=== PATIENT | female | born 1925 | race Caucasian/White ===

== ENCOUNTER 2017-03-09 17:12 | Inpatient (IN) | payer MEDICARE, BC ==
[2017-03-09] MEDS ORDERED: NITROGLYCERIN 0.4 MG TAB SL PRN (17:19)
[2017-03-09] MEDS ORDERED: SODIUM CHLORIDE 0.9% FLUSH 10 ML SOL IV PRN (17:19)
[2017-03-09] MEDS ORDERED: ASPIRIN 81 MG CHEWABLE CTB PO STA (17:19)
[2017-03-09] MEDS ORDERED: ASPIRIN 81 MG CHEWABLE CTB ONE (17:29)
[2017-03-09] MEDS ORDERED: NITROGLYCERIN 0.4 MG TAB SL ONE (17:29)
[2017-03-09 17:41] LABS: BASOPHILS % (AUTO) 1 % (0-3); EOSINOPHILS % (AUTO) 1 % (0-9); HEMATOCRIT 41 % (35-47); MEAN CORPUSCULAR HGB CONC 34.1 gm/dl (32.0-36.0); MEAN CORPUSCULAR VOLUME 88 fL (81-99); MONOCYTES % (AUTO) 13.8 % (0-12)
[2017-03-09 17:55] LABS: GLOM FILT RATE 72 mL/min (>60); SODIUM 139 mMol/L (136-145)
[2017-03-09 19:21] LABS: APPEARANCE,URINE Slightly Cloudy; BILIRUBIN,URINE NEGATIVE (NEGATIVE); COLOR,URINE Yellow; GLUCOSE, URINE (UA) NEGATIVE (NEGATIVE); KETONES,URINE NEGATIVE (NEGATIVE); LEUKOCYTE ESTERASE ,URINE NEGATIVE (NEGATIVE); NITRATE,URINE POSITIVE (NEGATIVE); OCCULT BLOOD,URINE 2+ (NEG-TRACE); UROBILINOGEN,URINE 0.2 (0.2-1.0 EU)
[2017-03-09] MEDS ORDERED: METOPROLOL SUCCINATE 50 MG ER TAB PO SCH (19:30)
[2017-03-09] MEDS: ENOXAPARIN 60 MG SOL SC SCH (20:32)
[2017-03-09] MEDS: SIMVASTATIN 20 MG TAB PO SCH (20:33)
[2017-03-09] MEDS ORDERED: APAP/HYDROCODONE 325/5 TAB PO PRN (21:08)
[2017-03-10] MEDS ORDERED: SODIUM CHLORIDE 0.9% 500 ML 500 ML IV ONE (07:17)
[2017-03-10] MEDS: SODIUM CHLORIDE 0.9% FLUSH 10 ML SOL IV SCH ×2 (07:17→15:02)
[2017-03-10 07:38] LABS: CALCIUM 8.8 mg/dl (8.5-10.1); GLOM FILT RATE 80 mL/min (>60); POTASSIUM 3.9 mMol/L (3.5-5.1); SODIUM 140 mMol/L (136-145)
[2017-03-10] MEDS: MAGNESIUM OXIDE 400 MG TAB PO SCH (10:57)
[2017-03-10] MEDS: SULFAMETHOXAZOLE/TRIMETHOPRI 800/160 MG PO SCH ×2 (10:57→20:27)
[2017-03-10] MEDS: ENOXAPARIN 60 MG SOL SC SCH ×2 (11:05→20:22)
[2017-03-10] MEDS ORDERED: METOPROLOL SUCCINATE 50 MG ER TAB PO SCH (18:00)
[2017-03-10] MEDS: WARFARIN SODIUM 3 MG TAB PO SCH (18:50)
[2017-03-10] MEDS: SIMVASTATIN 20 MG TAB PO SCH (20:26)
[2017-03-11] MEDS: SODIUM CHLORIDE 0.9% FLUSH 10 ML SOL IV SCH ×4 (00:54→20:30)
[2017-03-11 07:41] LABS: CALCIUM 8.4 mg/dl (8.5-10.1); POTASSIUM 3.8 mMol/L (3.5-5.1)
[2017-03-11] MEDS: ENOXAPARIN 60 MG SOL SC SCH ×2 (08:14→20:19)
[2017-03-11] MEDS: SULFAMETHOXAZOLE/TRIMETHOPRI 800/160 MG PO SCH ×2 (08:15→20:18)
[2017-03-11] MEDS: MAGNESIUM OXIDE 400 MG TAB PO SCH (08:15)
[2017-03-11] MEDS: WARFARIN SODIUM 3 MG TAB PO SCH (18:02)
[2017-03-11] MEDS: METOPROLOL SUCCINATE 50 MG ER TAB PO SCH (18:06)
[2017-03-11] MEDS: SIMVASTATIN 20 MG TAB PO SCH (20:18)
[2017-03-11 22:37] VITALS: RESP 16
[2017-03-12] MEDS: ENOXAPARIN 60 MG SOL SC SCH (06:49)
[2017-03-12] MEDS: SODIUM CHLORIDE 0.9% FLUSH 10 ML SOL IV SCH (06:49)
[2017-03-12 08:48] VITALS: BP 130/66; PULSE 73; TEMP 97.9; O2SAT 98
[2017-03-12] MEDS: SULFAMETHOXAZOLE/TRIMETHOPRI 800/160 MG PO SCH (08:48)
[2017-03-12] MEDS: MAGNESIUM OXIDE 400 MG TAB PO SCH (08:48)
[2017-03-12] MEDS: METOPROLOL SUCCINATE 50 MG ER TAB PO SCH (08:48)
[2017-03-12] MEDS ORDERED: PNEUMOC 13-VAL CONJ-DIP CRM/PF 0.5 ML SYRINGE IM ONE (11:23)
== END 2017-03-12 13:30 | disposition home or self-care (01) | DRG 309 ==
LOC: ED 17:12 → ACUTE CARE 19:12 → UNDOADMIN 19:12 → ACUTE CARE 19:25
PROVIDERS: ADMIT Family Medicine; ATTEND Family Medicine
DX: I48.91 Unspecified atrial fibrillation (principal); R50.9 Fever, unspecified; R06.02 Shortness of breath; N30.00 Acute cystitis without hematuria; I95.9 Hypotension, unspecified; I10 Essential (primary) hypertension; R07.9 Chest pain, unspecified
CPT/HCPCS: 36415; 71045; 80048; 81001; 82550; 82962; 83735; 83880; 84484; 85025; 85378; 85610; 87077; 87088; 87186; 93005; 93012; 99284; J1650; A9270-GY

== ENCOUNTER 2017-03-14 07:32 | Emergency (ER) | payer MEDICARE, BC ==
[2017-03-14] MEDS ORDERED: ASPIRIN 325 MG TAB PO SCH (07:45)
[2017-03-14] MEDS ORDERED: NITROGLYCERIN 0.4 MG TAB SL PRN (07:46)
[2017-03-14 07:52] LABS: BASOPHILS % (AUTO) 1 % (0-3); EOSINOPHILS % (AUTO) 1 % (0-9); HEMATOCRIT 44 % (35-47); MEAN CORPUSCULAR HGB CONC 33.7 gm/dl (32.0-36.0); MEAN CORPUSCULAR VOLUME 89 fL (81-99); MONOCYTES % (AUTO) 7.6 % (0-12); NEUTROPHILS % (AUTO) 71.8 % (37-80)
[2017-03-14 07:56] VITALS: TEMP 98.7
[2017-03-14] MEDS ORDERED: ASPIRIN 81 MG CHEWABLE CTB ONE (08:00)
[2017-03-14] MEDS ORDERED: METOPROLOL TARTRATE 25 MG TAB ONE (08:00)
[2017-03-14] MEDS ORDERED: METOPROLOL TARTRATE 25 MG TAB PO ONE (08:05)
[2017-03-14 08:13] LABS: CALCIUM 9.3 mg/dl (8.5-10.1); GLOM FILT RATE 60 mL/min (>60); POTASSIUM 3.9 mMol/L (3.5-5.1); SODIUM 136 mMol/L (136-145)
[2017-03-14 13:13] VITALS: BP 108/51; PULSE 64; RESP 20; O2SAT 97
== END 2017-03-14 12:08 | disposition home or self-care (01) | DRG 313 ==
LOC: ED 07:32
DX: R07.9 Chest pain, unspecified (principal); R00.2 Palpitations
CPT/HCPCS: 71045; 80048; 84484; 85025; 85610; 93005; 99285

== ENCOUNTER 2017-06-18 17:54 | Emergency (ER) | payer MEDICARE, BC ==
[2017-06-18 18:15] VITALS: RESP 18; TEMP 98.4; O2SAT 99
[2017-06-18 19:43] LABS: INR 2.82 (0.86-1.12)
[2017-06-18 20:27] VITALS: BP 132/63; PULSE 57
== END 2017-06-18 20:05 | DRG 556 ==
LOC: ED 17:54
DX: M25.552 Pain in left hip (principal); M25.512 Pain in left shoulder; M54.9 Dorsalgia, unspecified; W01.0XXA Fall on same level from slipping, tripping and stumbling without subsequent striking against object, initial encounter; Z79.01 Long term (current) use of anticoagulants
CPT/HCPCS: 36415; 72220; 73030; 73521; 85610; 99282; 99283